=== PATIENT | male | born 2000 | race Two or more races ===

== ENCOUNTER 2023-07-06 20:10 | Emergency (ER) | payer OTHER ==
[~2023-07-06] VITALS: Ht 177.8 cm; Wt 81.7 kg
[2023-07-06] MEDS ORDERED: HYDROcodone-ACET 5/325MG TAB PO ONE (23:00)
[2023-07-07] MEDS ORDERED: CYCL-839 PO (01:02)
[2023-07-07] MEDS ORDERED: IBUP1TAB5 PO (01:02)
[2023-07-07 03:05] VITALS: BP 121/78; PULSE 79; RESP 18; TEMP 97.8; O2SAT 96
== END 2023-07-07 03:05 | disposition home or self-care (01) ==
LOC: ER 20:10
DX: S29.012A Strain of muscle and tendon of back wall of thorax, initial encounter (principal); S13.4XXA Sprain of ligaments of cervical spine, initial encounter; S43.402A Unspecified sprain of left shoulder joint, initial encounter; S63.91XA Sprain of unspecified part of right wrist and hand, initial encounter; S20.212A Contusion of left front wall of thorax, initial encounter; S09.90XA Unspecified injury of head, initial encounter; Z79.1 Long term (current) use of non-steroidal anti-inflammatories (NSAID); Z79.899 Other long term (current) drug therapy; V49.9XXA Car occupant (driver) (passenger) injured in unspecified traffic accident, initial encounter; Y93.89 Activity, other specified; Y92.410 Unspecified street and highway as the place of occurrence of the external cause; Y99.8 Other external cause status
CPT/HCPCS: 70450; 71111; 72040; 72070; 73030; 73130